=== PATIENT | female | born 1990 | race Caucasian/White ===

== ENCOUNTER 2019-10-28 08:54 | Emergency (ER) | payer OTHER ==
[2019-10-28 09:26] VITALS: BP 133/75; PULSE 81
--- NOTE | 2019-10-28 09:31 | EDM.PDOC ---
ED HPI GENERAL MEDICAL PROBLEM - General Chief Complaint: General Stated Complaint: flu symptoms Time Seen by Provider: 10/28/19 09:28 Source of Information: Reports: Patient - History of Present Illness INITIAL COMMENTS - FREE TEXT/NARRATIVE: HISTORY AND PHYSICAL: History of present illness: [ Patient presents with flu symptoms, she does have influenza A in the house her child was diagnosed 3 to 4 days ago, she presents mainly with cough and sore throat intermittent fever no chills or sweats no chest pain shortness of breath headache dizziness or palpitation no bowel or urine symptoms ] Review of systems: As per history of present illness and below otherwise all systems reviewed and negative. Past medical history: As per history of present illness and as reviewed below otherwise noncontributory. Surgical history: As per history of present illness and as reviewed below otherwise noncontributory. Social history: No reported history of drug or alcohol abuse. Family history: As per history of present illness and as reviewed below otherwise noncontributory. Physical exam: HEENT: Atraumatic, normocephalic, pupils reactive, negative for conjunctival pallor or scleral icterus, mucous membranes moist, throat clear, neck supple, nontender, trachea midline. Panic membranes injected moderate erythema of oropharynx no exudates no meningeal signs Lungs: Clear to auscultation, breath sounds equal bilaterally, chest nontender. Heart: S1S2, regular, negative for clicks, rubs, or JVD. Abdomen: Soft, nondistended, nontender. Negative for masses or hepatosplenomegaly. Negative for costovertebral tenderness. Pelvis: Stable nontender. Genitourinary: Deferred. Rectal: Deferred. Extremities: Atraumatic, negative for cords or calf pain. Neurovascular unremarkable. Neuro: Awake, alert, oriented. Cranial nerves II through XII unremarkable. Cerebellum unremarkable. Motor and sensory unremarkable throughout. Exam nonfocal. Diagnostics: [Strep Influenza ] Therapeutics: rest Fluids nutrition phenergan/codene hfa ] Impression: [viral Syndrome] Definitive disposition and diagnosis as appropriate pending reevaluation and review of above. 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 Other Psychiatric History: current home med Effexor 150mg at bedtime and Trazadone 50mg at bedtime - Infectious Disease History Infectious Disease History: Reports: Chicken Pox - Past Surgical History HEENT Surgical History: Reports: Tonsillectomy GI Surgical History: Reports: Bariatric Procedure Social & Family History - Family History Family Medical History: Noncontributory - Tobacco Use Smoking Status *Q: Never Smoker Second Hand Smoke Exposure: No - Caffeine Use Caffeine Use: Reports: None - Recreational Drug Use Recreational Drug Use: No ED ROS GENERAL - Review of Systems Review Of Systems: See Below ED EXAM, GENERAL - Physical Exam Exam: See Below Course - Vital Signs Last Recorded V/S: Last Vital Signs Temp 97 F 10/28/19 09:23 Pulse 81 10/28/19 09:23 Resp 16 10/28/19 09:23 BP 133/75 10/28/19 09:23 Pulse Ox 96 10/28/19 09:23 - Orders/Labs/Meds Orders: Active Orders 24 hr Category Date Time Status CULTURE STREP A CONFIRMATION [] Stat Lab 10/28/19 09:06 Results INFLUENZA A+B AG SCREEN [] Stat Lab 10/28/19 09:06 Received STREP SCRN A RAPID W CULT CONF [] Stat Lab 10/28/19 09:06 Results Departure - Departure Time of Disposition: 09:31 Disposition: Home, Self-Care 01 Condition: Good Clinical Impression: Viral syndrome - Discharge Information Referrals: Dinesh Clemente MD [Primary Care Provider] - Additional Instructions: The following information is given to patients seen in the emergency department who are being discharged to home. This information is to outline your options for follow-up care. We provide all patients seen in our emergency department with a follow-up referral. The need for follow-up, as well as the timing and circumstances, are variable depending upon the specifics of your emergency department visit. If you don't have a primary care physician on staff, we will provide you with a referral. We always advise you to contact your personal physician following an emergency department visit to inform them of the circumstance of the visit and for follow-up with them and/or the need for any referrals to a consulting specialist. The emergency department will also refer you to a specialist when appropriate. This referral assures that you have the opportunity for follow-up care with a specialist. All of these measure are taken in an effort to provide you with optimal care, which includes your follow-up. Under all circumstances we always encourage you to contact your private physician who remains a resource for coordinating your care. When calling for follow-up care, please make the office aware that this follow-up is from your recent emergency room visit. If for any reason you are refused follow-up, please contact the [facility] emergency department at and asked to speak to the emergency department charge nurse. Sepsis Event Note - Evaluation Sepsis Screening Result: No Definite Risk - Focused Exam Vital Signs: Vital Signs Temp Pulse Resp BP Pulse Ox 10/28/19 09:23 97 F 81 16 133/75 96 Date Exam was Performed: 10/28/19 Time Exam was Performed: 09:28 - My Orders Last 24 Hours: My Active Orders 10/28/19 09:06 CULTURE STREP A CONFIRMATION [RM] Stat INFLUENZA A+B AG SCREEN [] Stat STREP SCRN A RAPID W CULT CONF [RM] Stat - Assessment/Plan Last 24 Hours: My Active Orders 10/28/19 09:06 CULTURE STREP A CONFIRMATION [RM] Stat INFLUENZA A+B AG SCREEN [] Stat STREP SCRN A RAPID W CULT CONF [] Stat
== END 2019-10-28 09:58 | disposition home or self-care (01) ==
LOC: MW.ED 08:54
DX: B34.9 Viral infection, unspecified (principal); Z88.8 Allergy status to other drugs, medicaments and biological substances
CPT/HCPCS: 87081; 87804; 87880-QW; 99283

== ENCOUNTER 2022-05-20 07:46 | Day surgery (SDC) | payer OTHER ==
[~2022-05-20 07:46] MED LIST: Sodium Chloride 0.9% 10 ML Syringe FLUSH PRN; Sodium Chloride 0.9% 2.5 ML Syringe FLUSH PRN; Sodium Chloride 0.9% 20 ML SDV IV PRN; ceFAZolin 2 GM in Premix Bag 1 BAG IV ONE
[2022-05-20] MEDS ORDERED: Fluorescein 5 ML Vial ONE (08:03)
[2022-05-20] MEDS ORDERED: Scopolamine 1.5 MG Transdermal Patch ONE (08:17)
[2022-05-20] MEDS: Lactated Ringers 1,000 ML IV SCH ×2 (08:20→12:04)
[2022-05-20] MEDS ORDERED: fentaNYL 50 MCG/ML SDV IVPUSH PRN (08:22)
[2022-05-20] MEDS ORDERED: Metoclopramide 10 MG/2 ML SDV IVPUSH PRN (08:22)
[2022-05-20] MEDS ORDERED: Albuterol 0.083% 2.5 MG/3 ML Neb Soln NEB PRN (08:22)
[2022-05-20] MEDS ORDERED: Morphine 2 MG/ML SYRINGE IVPUSH PRN (08:22)
[2022-05-20] MEDS ORDERED: Naloxone 0.4 MG/ML SDV IVPUSH PRN (08:22)
[2022-05-20] MEDS ORDERED: Ondansetron 4 MG/2 ML SDV IVPUSH PRN ×2 (08:22→10:21)
[2022-05-20] MEDS ORDERED: Propofol 200 MG/20 ML SDV ONE (08:37)
[2022-05-20] MEDS ORDERED: fentaNYL 100 MCG/2 ML SDV ONE (08:38)
[2022-05-20] MEDS ORDERED: Ketamine 500 mg/10 ML MDV ONE (08:38)
[2022-05-20] MEDS ORDERED: ePHEDrine 50 MG/ML SDV ONE (08:39)
[2022-05-20] MEDS ORDERED: Lidocaine 2% 5 ML SDV ONE (08:39)
[2022-05-20] MEDS ORDERED: Dexamethasone 4 MG/ML 5 ML MDV ONE (08:39)
[2022-05-20] MEDS ORDERED: Ondansetron 4 MG/2 ML SDV ONE ×2 (08:39→09:44)
[2022-05-20] MEDS ORDERED: Dexmedetomidine 200 MCG/2 ML SDV ONE (08:44)
[2022-05-20] MEDS ORDERED: Rocuronium Bromide 50 MG/5 ML Syringe ONE (08:47)
[2022-05-20] MEDS ORDERED: propofoL 50 ML ONE (08:51)
[2022-05-20] MEDS ORDERED: ceFAZolin 1 GM Vial ONE (09:26)
[2022-05-20] MEDS ORDERED: Sugammadex Sodium 200 MG/2 ML VIAL ONE (09:44)
[2022-05-20] MEDS ORDERED: Glycopyrrolate 0.2 MG/ML SDV ONE (09:54)
[2022-05-20] MEDS ORDERED: Ketorolac 30 MG/ML SDV ONE (10:19)
[2022-05-20] MEDS ORDERED: Promethazine 25 MG/ML SDV IM PRN (10:21)
[2022-05-20] MEDS ORDERED: Acetaminophen/oxyCODONE 325-5 MG Tab PO PRN (10:21)
[2022-05-20] MEDS ORDERED: Ketorolac 30 MG/ML SDV IVPUSH ONE (10:21)
[2022-05-20] MEDS: HYDROmorphone 1 MG/ML Syringe IVPUSH PRN ×2 (10:38→10:53)
[2022-05-20] MEDS: Ketorolac 30 MG/ML SDV IVPUSH PRN ×2 (12:02→18:19)
[2022-05-20] MEDS: Morphine 4 MG/ML VIAL IVPUSH PRN ×2 (14:13→23:18)
[2022-05-20] MEDS: Acetaminophen/oxyCODONE 325-5 MG Tab PO PRN ×2 (15:30→20:32)
[2022-05-21 04:40] VITALS: PULSE 67
[2022-05-21 06:11] LABS: CARBON DIOXIDE,CO2 29.3 mmol/L (21.0-32.0)
[2022-05-21 08:14] VITALS: BP 128/71
== END 2022-05-21 10:00 | disposition home or self-care (01) ==
LOC: MW.SDS 07:46 → MW.MS 11:38 → MW.SDS 05-21 10:00
PROVIDERS: ATTEND Obstetrics & Gynecology
DX: N72 Inflammatory disease of cervix uteri (principal); D50.9 Iron deficiency anemia, unspecified; I10 Essential (primary) hypertension; E11.9 Type 2 diabetes mellitus without complications; F41.9 Anxiety disorder, unspecified; F32.A Depression, unspecified; M19.90 Unspecified osteoarthritis, unspecified site; E55.9 Vitamin D deficiency, unspecified; G43.909 Migraine, unspecified, not intractable, without status migrainosus; Z98.890 Other specified postprocedural states; Z88.8 Allergy status to other drugs, medicaments and biological substances; Z79.899 Other long term (current) drug therapy; Z79.83 Long term (current) use of bisphosphonates; Z87.891 Personal history of nicotine dependence
CPT/HCPCS: 36415; 58262; 80048; 85025; A9270; J0131; J0690; J1100; J1170; J1885; J2270; J2704; J3010; J3490; J7030; J7120; 84703; 85027; 86850; 86900; 86901; J2405

== ENCOUNTER 2025-05-03 09:21 | Emergency (ER) | payer BC, MEDICAID ==
[2025-05-03] MEDS: Rabies Immune Globulin/PF (HyperRAB) 300 UNIT/ML 5 ML SDV IM ONE (10:50)
[2025-05-03] MEDS: Rabies Vaccine (Avian) 2.5 Unit Inj Kit IM ONE (10:51)
[2025-05-03] MEDS: Diphtheria,Pertussis(Acell),Tetanus Vaccine 0.5 ML Syringe IM ONE (10:52)
[2025-05-03 11:12] VITALS: BP 99/64; PULSE 89
== END 2025-05-03 11:52 | disposition home or self-care (01) ==
LOC: MW.ED 09:21
DX: S61.251A Open bite of left index finger without damage to nail, initial encounter (principal); I10 Essential (primary) hypertension; Z23 Encounter for immunization; Z75.3 Unavailability and inaccessibility of health-care facilities; Z88.8 Allergy status to other drugs, medicaments and biological substances; Z79.899 Other long term (current) drug therapy; W55.81XA Bitten by other mammals, initial encounter
CPT/HCPCS: 90375; 90471; 90472; 90675; 90715; 96372; 99282; 99283-25

== ENCOUNTER 2025-08-18 21:31 | Day surgery (SDC) | payer BC, MEDICAID ==
[2025-08-18 22:36] LABS: MEAN PLATELET VOLUME 9.5 fL (9.4-12.3); NRBC ABSOLUTE 0.00 K/uL (0.00-0.02); NRBC PERCENT 0.0 /100WBC (0.0-0.2); PLATELET COUNT,PLT 522 K/uL (150-400); RED BLOOD CELL COUNT 3.83 M/uL (4.10-5.30); WHITE BLOOD CELL COUNT,WBC 14.74 K/uL (3.9-11.3)
[2025-08-18] MEDS ORDERED: Naloxone 0.4 MG/ML SDV IVPUSH PRN (22:38)
[2025-08-18 22:47] LABS: A/G RATIO 1.3 (0.9-1.6); ALANINE AMINOTRANSFERASE,ALT 25.0 IU/L (14-63); ASPARTATE AMNIOTRANSFERASE,AST 45.0 IU/L (15-37); BILIRUBIN TOTAL 0.3 mg/dL (0.2-1.0); BLOOD UREA NITROGEN,BUN 12.0 mg/dL (7.0-18.0); CARBON DIOXIDE,CO2 24.8 mmol/L (21.0-32.0); CHLORIDE,CL 102.0 mmol/L (98-107); CREATININE 1.1 mg/dL (0.6-1.0); EST CRCL DRUG DOSING (CG) 53.87 mL/min; GLUCOSE RANDOM 150.0 mg/dL (74-106); POTASSIUM,K 3.1 mmol/L (3.5-5.1); PROTEIN TOTAL,TP 6.9 g/dL (6.4-8.2); SODIUM,NA 138.0 mmol/L (136-145)
[2025-08-18] MEDS: Ondansetron 4 MG/2 ML SDV IVPUSH ONE (22:50)
[2025-08-18 22:52] LABS: ESTIMATED GFR 67.0 mL/min (>60)
[2025-08-18 22:56] LABS: LYMPHOCYTES ABSOLUTE MAN 6.49 K/uL (1.00-4.80); LYMPHOCYTES PERCENT MAN 44 % (24-44); SEG NEUTROPHILS ABSOLUTE MAN 6.49 K/uL (1.80-7.70); SEG NEUTROPHILS PERCENT MAN 44 % (41-71)
[2025-08-18 22:57] LABS: BASOPHILS ABSOLUTE MAN 0.00 K/uL (0.00-0.20); BASOPHILS PERCENT MAN 0 % (0-1); EOSINOPHILS ABSOLUTE MAN 0.00 K/uL (0.00-0.45); EOSINOPHILS PERCENT MAN 0 % (0-6); MONOCYTES ABSOLUTE MAN 1.77 K/uL (0.00-0.80); MONOCYTES PERCENT MAN 12 % (0-8)
[2025-08-19] MEDS ORDERED: Ondansetron 4 MG/2 ML SDV IVPUSH PRN ×2 (00:17→08:20)
[2025-08-19] MEDS: Scopalamine 1mg/3day Transdermal Patch TRDERM SCH (00:51)
[2025-08-19] MEDS: Lactated Ringers 1,000 ML IV SCH (00:52)
[2025-08-19] MEDS: Ketorolac 30 MG/ML SDV IVPUSH PRN (03:19)
[2025-08-19 07:14] LABS: MEAN PLATELET VOLUME 8.8 fL (9.4-12.3); NRBC ABSOLUTE 0.00 K/uL (0.00-0.02); NRBC PERCENT 0.0 /100WBC (0.0-0.2); PLATELET COUNT,PLT 364 K/uL (150-400); RED BLOOD CELL COUNT 3.53 M/uL (4.10-5.30); WHITE BLOOD CELL COUNT,WBC 10.75 K/uL (3.9-11.3)
[2025-08-19] MEDS ORDERED: propofoL 1,000 MG/100 ML 200 ML ONE (07:30)
[2025-08-19] MEDS ORDERED: Ropivacaine 0.5% 5 MG/ML 30 ML SDV ONE (07:30)
[2025-08-19] MEDS ORDERED: Morphine 10 MG/ML SDV ONE (07:35)
[2025-08-19 07:36] LABS: A/G RATIO 1.2 (0.9-1.6); ALANINE AMINOTRANSFERASE,ALT 179.0 IU/L (14-63); ASPARTATE AMNIOTRANSFERASE,AST 136.0 IU/L (15-37); BILIRUBIN TOTAL 0.4 mg/dL (0.2-1.0); BLOOD UREA NITROGEN,BUN 11.0 mg/dL (7.0-18.0); CARBON DIOXIDE,CO2 30.7 mmol/L (21.0-32.0); CHLORIDE,CL 106.0 mmol/L (98-107); CREATININE 0.7 mg/dL (0.6-1.0); EST CRCL DRUG DOSING (CG) 84.65 mL/min; GLUCOSE RANDOM 86.0 mg/dL (74-106); POTASSIUM,K 4.3 mmol/L (3.5-5.1); PROTEIN TOTAL,TP 6.0 g/dL (6.4-8.2); SODIUM,NA 139.0 mmol/L (136-145)
[2025-08-19] MEDS ORDERED: fentaNYL 100 MCG/2 ML SDV ONE (07:36)
[2025-08-19 07:38] LABS: ESTIMATED GFR 116.0 mL/min (>60)
[2025-08-19] MEDS ORDERED: Naloxone 0.4 MG/ML SDV IVPUSH PRN (08:20)
[2025-08-19] MEDS ORDERED: fentaNYL 50 MCG/ML SDV IVPUSH PRN (08:20)
[2025-08-19] MEDS ORDERED: Albuterol 0.083% 2.5 MG/3 ML Neb Soln NEB PRN (08:20)
[2025-08-19 14:51] VITALS: BP 109/71; PULSE 61
== END 2025-08-19 14:30 | disposition home or self-care (01) ==
LOC: MW.ED 21:31 → MW.SDS 23:59 → MW.MS 23:59 → MW.SDS 08-19 00:06
PROVIDERS: ATTEND Surgery
DX: K80.12 Calculus of gallbladder with acute and chronic cholecystitis without obstruction (principal); I10 Essential (primary) hypertension; E11.9 Type 2 diabetes mellitus without complications; Z88.8 Allergy status to other drugs, medicaments and biological substances; Z79.899 Other long term (current) drug therapy
CPT/HCPCS: 36415; 47562; 64488; 71046; 76705; 80053; 83036; 83690; 83735; 85025; 85027; 93005; A9270; J0665; J0690; J1885; J2003; J2270; J2272; J2405; J2704; J2765; J2795; J3010; J7120; J7999; 00790; 93010; 99285; J1171; J2371; J3490